=== PATIENT | female | born 1965 | race Caucasian/White ===

== ENCOUNTER 2019-12-18 10:57 | Day surgery (SDC) | payer OTHER ==
[~2019-12-18] VITALS: Ht 165.1 cm; Wt 72.9 kg
[~2019-12-18 10:57] MED LIST: BUPIVACAINE/PF-EPI 0.5% 1:200K ONE; LIDOCAINE/PF 1%-EPI 1:200K, 30 ML ONE
[2019-12-18] MEDS ORDERED: LIDOCAINE-MPF 1%, 2ML INFIL STA (11:12)
[2019-12-18] MEDS ORDERED: LACTATED RINGERS 1,000 ML IV SCH (11:12)
[2019-12-18] MEDS ORDERED: CHLORHEXIDINE 15 ML UDC MM STA (11:12)
[2019-12-18 11:34] VITALS: BP 146/80
[2019-12-18] MEDS ORDERED: no meds per pt (12:20)
[2019-12-18] MEDS ORDERED: MIDAZOLAM 1 MG/ML, 2ML ONE (12:53)
[2019-12-18] MEDS ORDERED: FENTANYL PF 100 MCG/2ML ONE ×2 (12:53→14:23)
[2019-12-18] MEDS ORDERED: KETOROLAC 30 MG/1 ML ONE (13:15)
[2019-12-18] MEDS ORDERED: DIAZEPAM 5 MG/ML, 2ML IVPush PRN (13:30)
[2019-12-18] MEDS ORDERED: PROMETHAZINE 25 MG/ML, 1ML IV PRN (13:30)
[2019-12-18] MEDS ORDERED: HYDROmorphone 2 MG/ML, 1ML IVPush PRN (13:30)
[2019-12-18] MEDS ORDERED: ACETAMINOPHEN 325 MG TABLET PO PRN (13:30)
[2019-12-18] MEDS ORDERED: LABETALOL 5MG/ML, 20ML IV PRN (13:30)
[2019-12-18] MEDS ORDERED: hydrALAzine 20 MG/ML, 1ML IV PRN (13:30)
[2019-12-18] MEDS ORDERED: OXYcodone 5 MG/5 ML ORAL.SOL UDC PO PRN (13:30)
[2019-12-18] MEDS ORDERED: ALBUTEROL SULFATE 2.5 MG/3 ML NPPB PRN (13:30)
[2019-12-18] MEDS ORDERED: MEPERIDINE/PF 25MG/0.5ML IVPush PRN (13:30)
[2019-12-18] MEDS ORDERED: ONDANSETRON 2MG/ML, 2ML ONE (13:42)
[2019-12-18] MEDS ORDERED: PROPOFOL 10 MG/ML, 20ML ONE (13:42)
[2019-12-18] MEDS ORDERED: CEFAZOLIN 1,000 MG ONE (13:42)
[2019-12-18] MEDS ORDERED: NEOSTIGMINE 1 MG/ML, 10ML ONE (13:42)
[2019-12-18] MEDS ORDERED: SUCCINYLCHOLINE 20 MG/ML, 10ML ONE (13:42)
[2019-12-18] MEDS ORDERED: DEXAMETHASONE 4 MG/ML, 1ML ONE (13:42)
[2019-12-18] MEDS ORDERED: GLYCOPYRROLATE 0.2MG/1ML, 5ML ONE (13:42)
[2019-12-18] MEDS ORDERED: ROCURONIUM 10MG/ML,5ML ONE (13:42)
[2019-12-18] MEDS: FENTANYL PF 100 MCG/2ML IV PRN ×2 (14:22→14:45)
[2019-12-18] MEDS ORDERED: OXYcodone 5 MG/5 ML ORAL.SOL UDC ONE (14:23)
[2019-12-18] MEDS ORDERED: SCOPOLAMINE 1MG PATCH TD ONE (18:00)
[2019-12-18] MEDS ORDERED: PROMETHAZINE 12.5 MG SUPP PR PRN (18:00)
[2019-12-18] MEDS ORDERED: SCOPOLAMINE PATCH, 1.5MG PATCH.TD72 TD ONE (18:02)
[2019-12-18] MEDS ORDERED: PROMETHAZINE 25 MG SUPP PR ONE (18:02)
== END 2019-12-18 18:35 | disposition home or self-care (01) ==
LOC: OUT 10:57
PROVIDERS: ATTEND Orthopaedic Surgery
DX: S83.231A Complex tear of medial meniscus, current injury, right knee, initial encounter (principal); Z11.59 Encounter for screening for other viral diseases; S83.271A Complex tear of lateral meniscus, current injury, right knee, initial encounter; M22.41 Chondromalacia patellae, right knee; M65.861 Other synovitis and tenosynovitis, right lower leg; Z90.49 Acquired absence of other specified parts of digestive tract; Z98.51 Tubal ligation status; Z98.890 Other specified postprocedural states; X58.XXXA Exposure to other specified factors, initial encounter; Y93.89 Activity, other specified; Y92.89 Other specified places as the place of occurrence of the external cause; Y99.8 Other external cause status
CPT/HCPCS: 29880; J0690; J1100; J1885; J2250; J2405; J2704; J3010; J3490; J7120; U0001; J2710; J0330